=== PATIENT | female | born 1960 | race Hispanic/Latino ===

== ENCOUNTER 2018-09-28 17:44 | Emergency (ER) | payer OTHER ==
[~2018-09-28] VITALS: Ht 160 cm; Wt 62.6 kg
--- NOTE | 2018-09-28 19:05 | Diagnostic Imaging Report ---
ANKLE 3 + VIEWS RIGHT - 3 views HISTORY: Pain COMPARISON: None available. FINDINGS: Bones: Nondisplaced spiral fracture of the distal fibular metadiaphysis identified on the oblique view only. Joints: The joint spaces are well-maintained. Soft tissues: Moderate lateral malleolus soft tissue swelling. IMPRESSION: Nondisplaced spiral fracture of the distal fibular metadiaphysis identified on the oblique view only. Signed by: Dr. Kira Steven M.D. on 09/28/2018 7:02 PM
== END 2018-09-28 19:14 | disposition home or self-care (01) ==
LOC: ER 17:44
DX: S93.491A Sprain of other ligament of right ankle, initial encounter (principal); X50.1XXA Overexertion from prolonged static or awkward postures, initial encounter; Y92.008 Other place in unspecified non-institutional (private) residence as the place of occurrence of the external cause; M06.9 Rheumatoid arthritis, unspecified
CPT/HCPCS: 99282